=== PATIENT | male | born 1995 | race Caucasian/White ===

== ENCOUNTER 2024-03-04 18:58 | Emergency (ER) | payer OTHER ==
[2024-03-04 19:25] VITALS: BP 133/88; PULSE 65; RESP 18; TEMP 99.1; BMI 24.4
[2024-03-04] MEDS ORDERED: CLINDAMYCIN HCL 150 MG CAPSULE (FP) ONE (19:38)
[2024-03-04] MEDS ORDERED: KETOROLAC TROMETHAMINE 30 MG/1 ML VIAL ONE (19:38)
[2024-03-04] MEDS ORDERED: KETOROLAC TROMETHAMINE 60 MG/2 ML VIAL ONE (19:40)
[2024-03-04] MEDS: CLINDAMYCIN HCL 300 MG CAPSULE PO ONE (19:49)
[2024-03-04] MEDS: KETOROLAC TROMETHAMINE 60 MG/2 ML VIAL IM ONE (19:50)
== END 2024-03-04 20:14 | disposition home or self-care (01) ==
LOC: FER 18:58
PROC: 3E0133Z Introduction of Anti-inflammatory into Subcutaneous Tissue, Percutaneous Approach (ICD-10-PCS; principal; 2024-03-04)
DX: K05.30 Chronic periodontitis, unspecified (principal); K08.89 Other specified disorders of teeth and supporting structures
CPT/HCPCS: 99284-25

== ENCOUNTER 2024-06-25 07:49 | Emergency (ER) | payer OTHER ==
[2024-06-25 08:10] VITALS: BP 128/85; PULSE 94; RESP 19; TEMP 98.2; BMI 22.5
[2024-06-25] MEDS ORDERED: ACETAMINOPHEN INJECTION 100 ML ONE (08:51)
[2024-06-25] MEDS ORDERED: ONDANSETRON 4 MG/2 ML VIAL ONE (08:51)
[2024-06-25] MEDS: SODIUM CHLORIDE 0.9% 1000 ML INFUS.BAG IV ONE (08:56)
[2024-06-25] MEDS: ONDANSETRON 4 MG/2 ML VIAL IVPUSH ONE (08:56)
[2024-06-25] MEDS: ACETAMINOPHEN 1000 MG/100 ML BAG IVPB ONE (08:56)
[2024-06-25 09:15] LABS: HEMATOCRIT 39.8 % (35.4-49); HEMOGLOBIN 13.8 G/dL (11.7-16.9); MCH 30.9 pg (25.7-33.7); MCHC 34.7 g/dl (32.0-35.9); MEAN PLT VOLUME 9.1 fl (7.5-11.1); PLATELET COUNT 166.7 10^3/uL (134-434); RBC 4.47 10^6/uL (4.00-5.60); RDW 14.1 % (11.9-15.9); WHITE BLOOD COUNT 4.5 10^3/uL (4.0-10.8)
[2024-06-25 09:20] LABS: PLATELET ESTIMATE ADEQUATE
[2024-06-25 11:29] LABS: ALBUMIN 4.4 g/dl (3.4-5.0); BILIRUBIN,TOTAL 0.8 mg/dl (0.2-1); CALCIUM 9.1 mg/dl (8.5-10.1); POTASSIUM 3.9 mmol/L (3.5-5.1); TOT PROT 6.4 g/dl (6.4-8.2)
== END 2024-06-25 11:55 | disposition home or self-care (01) ==
LOC: FER 07:49
PROC: 3E033NZ Introduction of Analgesics, Hypnotics, Sedatives into Peripheral Vein, Percutaneous Approach (ICD-10-PCS; principal; 2024-06-25)
PROC: 3E033GC Introduction of Other Therapeutic Substance into Peripheral Vein, Percutaneous Approach (ICD-10-PCS; 2024-06-25)
DX: R10.12 Left upper quadrant pain (principal); R11.0 Nausea
CPT/HCPCS: 0241U-QW; 36415; 74178-TC; 80053; 81003; 81015; 85027; 99285-25; J0131; Q9967